=== PATIENT | female | born 1980 | race African-American/Black ===

== ENCOUNTER 2018-11-25 03:15 | Emergency (ER) | payer SELFPAY ==
[~2018-11-25] VITALS: Ht 188 cm; Wt 80.7 kg
[2018-11-25 03:15] VITALS: BP 131/78
--- NOTE | 2018-11-25 03:15 | NUR ---
ED Nurse Note: Patient brought in by ambulance from the streets with a general complaint, patient complains of multiple issuues, complains of generalized 10/10 body pain, states that she wants to be checked out. at time of arrival patient is stating that she does want to jump in front of cars, however did not commit said plan, patient was just hospitalized prior to this and was diagnosed with a UTI. patient presents with with scratch wounds however the wound is not open. patient is alert and oriented x4, and walks with a steady gait, VSS
[2018-11-25 03:49] LABS: APPEARANCE,URINE SLIGHTLY CLOUDY; BILIRUBIN, URINE NEGATIVE (NEGATIVE); GLUCOSE, URINE (UA) NEGATIVE (NEGATIVE); KETONES,URINE 1+ (NEGATIVE); LEUKOCYTE ESTERASE ,URINE 1+ (NEGATIVE); NITRITE,URINE NEGATIVE (NEGATIVE); PH,URINE 5 (4.5-8.0); PROTEIN,URINE 2+ (NEGATIVE); UROBILINOGEN,URINE 1 MG/DL (0.0-1.0)
[2018-11-25 03:53] LABS: COLOR,URINE YELLOW
[2018-11-25 04:08] LABS: HEMATOCRIT 32.2 % (37.0-47.0); HEMOGLOBIN 10.6 G/DL (12.0-16.0); MEAN CORPUSCULAR VOLUME 92 FL (80-99); PLATELET COUNT 222 K/UL (150-450); RED BLOOD COUNT 3.49 M/UL (4.20-5.40); RED CELL DISTRIBUTION WIDTH 12.5 % (11.6-14.8); WHITE BLOOD COUNT 6.7 K/UL (4.8-10.8)
--- NOTE | 2018-11-25 04:12 | Emergency Room Report ---
History of Present Illness General Chief Complaint: General Complaint Source: Patient, EMS (Jose Angel Chavez MD) Present Illness HPI Patient presents with multiple complaints. Apparently she was just evaluated at [facility] yesterday. She says she usually is supposed be taking Abilify but has not recently. She was evaluated psychiatrically by them. She still feels suicidal at this time. Her plan is to run into traffic. The patient also complained about a dental infection. This is been long- standing and she cannot get care for it. The patient will come complains about irregular vaginal bleeding. She says more spotting. She denies any pain in her abdomen. She does not believe she is at this time. Is not her. At the moment. The patient smokes cigarettes. She says that she was told she has a UTI at [facility] yesterday. They gave her a dose of antibiotics there taking any more antibiotics since that dose. (Jose Angel Chavez MD) Allergies: Coded Allergies: No Known Allergies (Unverified , 11/25/18) Patient History Past Medical History: see triage record Social History: Reports: smoking, drug use Social History Narrative on streets Now: No Reviewed Nursing Documentation: PMH: Agreed; PSxH: Agreed (Jose Angel Chavez MD) Nursing Documentation-PMH Past Medical History: No History, Except For History Of Psychiatric Problem: Yes (Jose Angel Chavez MD) Review of Systems All Other Systems: negative except mentioned in HPI (Jose Angel Chavez MD) Physical Exam Vital Signs Date Time Temp Pulse Resp B/P (MAP) Pulse Ox O2 Delivery O2 Flow Rate FiO2 11/25/18 03:15 97.5 93 18 131/78 (95) 98 Room Air Sp02 EP Interpretation: reviewed, normal General Appearance: well appearing, no apparent distress, GCS 15 Head: normocephalic Eyes: bilateral eye fluoroscene uptake, bilateral eye Scleral Injection ENT: moist mucus membranes, other - missing tooth R lower gum without swelling Neck: supple Respiratory: lungs clear, normal breath sounds Cardiovascular #1: regular rate, rhythm Cardiovascular #2: 2+ radial (R) Gastrointestinal: normal inspection, normal bowel sounds, non tender, no mass, non-distended Musculoskeletal: back normal, gait/station normal, normal range of motion Neurologic: alert, oriented x3, grossly normal Psychiatric: depressed affect Suicide Risk Assessment: Suicidal Ideation: Yes Had intent to initiate attempt: Yes Pt's plan for suicide attempt: Yes Has means to complete attempt: Yes Skin: no rash (Jose Angel Chavez MD) Medical Decision Making Diagnostic Impression: Primary Impression: Amphetamine abuse Additional Impression: Dysfunctional uterine bleeding ER Course She presents with suicidal ideation and abnormal vaginal bleeding and dental pain. Differential includes exacerbation of schizoaffective disorder, suicidal ideation, electrolyte abnormality dental abscess, fibroid amongst others we need to exclude . The patient will be evaluated with EKG and labs. She will be given a dose of Abilify. Labs remarkable for + amphetamine. Medically clear for psychiatric evaluation or treatment. 7:[address] Steven. Laboratory Tests Test 11/25/18 03:15 11/25/18 03:35 White Blood Count 6.7 K/UL (4.8-10.8) Red Blood Count 3.49 M/UL (4.20-5.40) L Hemoglobin 10.6 G/DL (12.0-16.0) L Hematocrit 32.2 % (37.0-47.0) L Mean Corpuscular Volume 92 FL (80-99) Mean Corpuscular Hemoglobin 30.4 PG (27.0-31.0) Mean Corpuscular Hemoglobin Concent 33.0 G/DL (32.0-36.0) Red Cell Distribution Width 12.5 % (11.6-14.8) Platelet Count 222 K/UL (150-450) Mean Platelet Volume 7.1 FL (6.5-10.1) Neutrophils (%) (Auto) % (45.0-75.0) Lymphocytes (%) (Auto) % (20.0-45.0) Monocytes (%) (Auto) % (1.0-10.0) Eosinophils (%) (Auto) % (0.0-3.0) Basophils (%) (Auto) % (0.0-2.0) Sodium Level 140 MMOL/L (136-145) Potassium Level 3.5 MMOL/L (3.5-5.1) Chloride Level 106 MMOL/L (98-107) Carbon Dioxide Level 27 MMOL/L (21-32) Anion Gap 7 mmol/L (5-15) Blood Urea Nitrogen 12 mg/dL (7-18) Creatinine 0.7 MG/DL (0.55-1.30) Estimate Glomerular Filtration Rate > 60 mL/min (>60) Glucose Level 90 MG/DL (74-106) Calcium Level 8.7 MG/DL (8.5-10.1) Total Bilirubin 0.2 MG/DL (0.2-1.0) Aspartate Amino Transferase (AST) 24 U/L (15-37) Alanine Aminotransferase (ALT) 28 U/L (12-78) Alkaline Phosphatase 67 U/L (46-116) Total Creatine Kinase 173 U/L (26-308) Total Protein 6.9 G/DL (6.4-8.2) Albumin 3.4 G/DL (3.4-5.0) Globulin 3.5 g/dL Albumin/Globulin Ratio 1.0 (1.0-2.7) Salicylates Level 1.4 ug/mL (2.8-20) L Acetaminophen Level < 2 MCG/ML (10-30) L Serum Alcohol < 3 mg/dL Urine Color Yellow Urine Appearance Slightly cloudy Urine pH 5 (4.5-8.0) Urine Specific Hawley 1.020 (1.005-1.035) Urine Protein 2+ (NEGATIVE) H Urine Glucose (UA) Negative (NEGATIVE) Urine Ketones 1+ (NEGATIVE) H Urine Blood 5+ (NEGATIVE) H Urine Nitrite Negative (NEGATIVE) Urine Bilirubin Negative (NEGATIVE) Urine Urobilinogen 1 MG/DL (0.0-1.0) H Urine Leukocyte Esterase 1+ (NEGATIVE) H Urine RBC Tntc /HPF (0 - 2) H Urine WBC 2-4 /HPF (0 - 2) Urine Squamous Epithelial Cells Moderate /LPF (NONE/OCC) H Urine Bacteria Few /HPF (NONE) Urine HCG, Qualitative Negative (NEGATIVE) Urine Opiates Screen Negative (NEGATIVE) Urine Barbiturates Screen Negative (NEGATIVE) Phencyclidine (PCP) Screen Negative (NEGATIVE) Urine Amphetamines Screen Positive (NEGATIVE) H Urine Benzodiazepines Screen Negative (NEGATIVE) Urine Cocaine Screen Negative (NEGATIVE) Urine Marijuana (THC) Screen Negative (NEGATIVE) (Jose Angel Chavez MD) ER Course This patient was turned over to me by Dr. Chavez. The patient had presented with amphetamine intoxication and had presented with combative and agitated behavior and concern for suicidal ideation. The patient was allowed to rest in the emergency department. The patient had been turned over as a voluntary psych admit. However, the patient changed her mind and stated that she wanted to go home. She gave her name and her address. She stated she was no longer suicidal and did not need any psychiatric care. The patient refused all further evaluation by myself. The patient stated that she wanted to be disconnected from all of the monitoring equipment and be allowed to leave. She asked for juice and crackers and stated that she would like to go home. She was offered voluntary inpatient psychiatric treatment. She adamantly declined. Patient was danger on the use of amphetamines. The patient was discharged at her request. Laboratory Tests Test 11/25/18 03:15 11/25/18 03:35 White Blood Count 6.7 K/UL (4.8-10.8) Red Blood Count 3.49 M/UL (4.20-5.40) L Hemoglobin 10.6 G/DL (12.0-16.0) L Hematocrit 32.2 % (37.0-47.0) L Mean Corpuscular Volume 92 FL (80-99) Mean Corpuscular Hemoglobin 30.4 PG (27.0-31.0) Mean Corpuscular Hemoglobin Concent 33.0 G/DL (32.0-36.0) Red Cell Distribution Width 12.5 % (11.6-14.8) Platelet Count 222 K/UL (150-450) Mean Platelet Volume 7.1 FL (6.5-10.1) Neutrophils (%) (Auto) % (45.0-75.0) Lymphocytes (%) (Auto) % (20.0-45.0) Monocytes (%) (Auto) % (1.0-10.0) Eosinophils (%) (Auto) % (0.0-3.0) Basophils (%) (Auto) % (0.0-2.0) Sodium Level 140 MMOL/L (136-145) Potassium Level 3.5 MMOL/L (3.5-5.1) Chloride Level 106 MMOL/L (98-107) Carbon Dioxide Level 27 MMOL/L (21-32) Anion Gap 7 mmol/L (5-15) Blood Urea Nitrogen 12 mg/dL (7-18) Creatinine 0.7 MG/DL (0.55-1.30) Estimate Glomerular Filtration Rate > 60 mL/min (>60) Glucose Level 90 MG/DL (74-106) Calcium Level 8.7 MG/DL (8.5-10.1) Total Bilirubin 0.2 MG/DL (0.2-1.0) Aspartate Amino Transferase (AST) 24 U/L (15-37) Alanine Aminotransferase (ALT) 28 U/L (12-78) Alkaline Phosphatase 67 U/L (46-116) Total Creatine Kinase 173 U/L (26-308) Total Protein 6.9 G/DL (6.4-8.2) Albumin 3.4 G/DL (3.4-5.0) Globulin 3.5 g/dL Albumin/Globulin Ratio 1.0 (1.0-2.7) Salicylates Level 1.4 ug/mL (2.8-20) L Acetaminophen Level < 2 MCG/ML (10-30) L Serum Alcohol < 3 mg/dL Urine Color Yellow Urine Appearance Slightly cloudy Urine pH 5 (4.5-8.0) Urine Specific Hawley 1.020 (1.005-1.035) Urine Protein 2+ (NEGATIVE) H Urine Glucose (UA) Negative (NEGATIVE) Urine Ketones 1+ (NEGATIVE) H Urine Blood 5+ (NEGATIVE) H Urine Nitrite Negative (NEGATIVE) Urine Bilirubin Negative (NEGATIVE) Urine Urobilinogen 1 MG/DL (0.0-1.0) H Urine Leukocyte Esterase 1+ (NEGATIVE) H Urine RBC Tntc /HPF (0 - 2) H Urine WBC 2-4 /HPF (0 - 2) Urine Squamous Epithelial Cells Moderate /LPF (NONE/OCC) H Urine Bacteria Few /HPF (NONE) Urine HCG, Qualitative Negative (NEGATIVE) Urine Opiates Screen Negative (NEGATIVE) Urine Barbiturates Screen Negative (NEGATIVE) Phencyclidine (PCP) Screen Negative (NEGATIVE) Urine Amphetamines Screen Positive (NEGATIVE) H Urine Benzodiazepines Screen Negative (NEGATIVE) Urine Cocaine Screen Negative (NEGATIVE) Urine Marijuana (THC) Screen Negative (NEGATIVE) (Robyn Domínguez DO) EKG Diagnostic Results Rate: normal Rhythm: NSR ST Segments: no acute changes (Jose Angel Chavez MD) Rhythm Strip Diag. Results EP Interpretation: yes Rhythm: NSR, no PVC's, no ectopy (Jose Angel Chavez MD) Last Vital Signs Date Time Temp Pulse Resp B/P (MAP) Pulse Ox O2 Delivery O2 Flow Rate FiO2 11/25/18 10:45 97.5 73 18 131/75 98 Room Air Status: improved (Jose Angel Chavez MD) Referrals: NOT CHOSEN IPA/,REFERRING (PCP) Joes Angel Chavez MD Nov 25, 2018 04:12 Robyn Domínguez DO Nov 25, 2018 11:40
[2018-11-25 04:22] LABS: ANION GAP 7 mmol/L (5-15); BLOOD UREA NITROGEN 12 mg/dL (7-18); CALCIUM 8.7 MG/DL (8.5-10.1); CARBON DIOXIDE 27 MMOL/L (21-32); CHLORIDE 106 MMOL/L (98-107); CREATININE 0.7 MG/DL (0.55-1.30); POTASSIUM 3.5 MMOL/L (3.5-5.1); SODIUM 140 MMOL/L (136-145)
[2018-11-25 04:26] LABS: ALANINE AMINOTRANSFERASE 28 U/L (12-78); ALBUMIN 3.4 G/DL (3.4-5.0); ALKALINE PHOSPHATASE 67 U/L (46-116); ASPARTATE AMINO TRANSFERASE 24 U/L (15-37); BILIRUBIN,TOTAL 0.2 MG/DL (0.2-1.0); CREATINE KINASE 173 U/L (26-308)
--- NOTE | 2018-11-25 05:37 | NUR ---
ED Nurse Note: Patient sleeping in room, no distress
[2018-11-25 06:56] VITALS: BP 122/72
--- NOTE | 2018-11-25 07:27 | NUR ---
ED Nurse Note: received pt from DAVID Mock. Pt sleeping in gurney but able to answer questions. Pt denies SI/HI at this time. sandwich and juice provided for pt. Sitter Shanika at the bedside. No s/s of distress. No labor breathing noted, chest rise evenly. Will continue to monitor
--- NOTE | 2018-11-25 10:30 | NUR ---
ED Nurse Note: pt sleeping in gurney without any acute distress. no labor breathing. sitter at bedside. suicide precaution done.
[2018-11-25 10:45] VITALS: BP 131/75
--- NOTE | 2018-11-25 11:35 | NUR ---
dcd sitter due to patinet is awake alert wants to leave no suicidal ideation now dr concepcion has been notified
--- NOTE | 2018-11-25 11:38 | NUR ---
ED Nurse Note: RN entered the room to assess the pt. Pt states, "Don't stare at my face, bitch". RN attempted to calm pt and pt requested to leave. Pt is able to answer quetions, A/Ox3. ERMD notified. ERMD at bedside and agreed to discharge the pt. All belongings given to pt. No IV was inserted to pt. Pt refused to sign mini cog and discharge instructions. Pt refused to provide address to go, "Bitch, I am not telling you where I go". Pt is dressed approapriately and ambulated out of ER with steady gait.
[2018-11-25 11:45] VITALS: BP 118/72
== END 2018-11-25 11:47 | disposition home or self-care (01) ==
LOC: EDBD 03:15 → EMR 03:33
DX: F15.10 Other stimulant abuse, uncomplicated (principal); N93.9 Abnormal uterine and vaginal bleeding, unspecified; K08.89 Other specified disorders of teeth and supporting structures; F17.210 Nicotine dependence, cigarettes, uncomplicated
CPT/HCPCS: 36415; 80053; 80307; 81003; 81025; 82550; 85025; 93005; 99284; G0480; 80329